=== PATIENT | female | born 1990 | race African-American/Black ===

== ENCOUNTER 2023-02-24 09:10 | Emergency (ER) | payer MEDICAID ==
[~2023-02-24] VITALS: Ht 175.3 cm; Wt 124.6 kg
[2023-02-24 11:24] VITALS: BP 165/117
[2023-02-24] MEDS ORDERED: AMLO5TAB4 PO (12:19)
== END 2023-02-24 12:30 | disposition home or self-care (01) ==
LOC: ER 09:11
DX: I10 Essential (primary) hypertension (principal); F17.200 Nicotine dependence, unspecified, uncomplicated; Z79.899 Other long term (current) drug therapy
CPT/HCPCS: 99283

== ENCOUNTER 2023-02-28 08:48 | Emergency (ER) | payer MEDICAID ==
[~2023-02-28] VITALS: Ht 175.3 cm; Wt 125.9 kg
[~2023-02-28 08:48] MED LIST: AMLO5TAB4 PO
[2023-02-28 08:55] VITALS: BP 176/109
[2023-02-28] MEDS ORDERED: HYDROcodone/acetaminophen 5mg/325mg tablet PO ONE (11:15)
[2023-02-28] MEDS ORDERED: NAPR-996 PO (11:20)
== END 2023-02-28 11:37 | disposition home or self-care (01) ==
LOC: ER 08:49
DX: M79.671 Pain in right foot (principal)
CPT/HCPCS: 73630; 99283

== ENCOUNTER 2023-12-10 11:39 | Emergency (ER) | payer MEDICAID ==
[~2023-12-10] VITALS: Ht 175.3 cm; Wt 104.5 kg
[~2023-12-10 11:39] MED LIST changes: +NAPR-996 PO
[2023-12-10 11:42] VITALS: BP 188/134; PULSE 102; RESP 20; TEMP 97; O2SAT 99
[2023-12-10] MEDS ORDERED: AMOX500C2 PO (12:06)
== END 2023-12-10 12:11 | disposition home or self-care (01) ==
LOC: ER 11:39
DX: H66.93 Otitis media, unspecified, bilateral (principal)
CPT/HCPCS: 99283

== ENCOUNTER 2024-01-23 14:50 | Outpatient (CLI) | payer MEDICAID | END 2024-01-23 23:59 | disposition home or self-care (01) | LOC: MRI 14:50 | PROVIDERS: ATTEND Nurse Practitioner Family | DX: I10 Essential (primary) hypertension (principal) | CPT/HCPCS: 70551 ==

== ENCOUNTER 2024-01-23 20:11 | Emergency (ER) | payer MEDICAID ==
[~2024-01-23] VITALS: Ht 175.3 cm; Wt 119.5 kg
[2024-01-23 20:24] VITALS: BP 115/78; PULSE 96; RESP 16; TEMP 97.2; O2SAT 97
[2024-01-23 22:34] LABS: ALBUMIN 3.8 G/DL (3.4-5.0); ANION GAP 11 (8-16); BLOOD UREA NITROGEN 19 MG/DL (7-18); BUN/CREATININE RATIO 10.1 (10.0-20.0); CALCIUM 9.2 MG/DL (8.5-10.1); CHLORIDE 99 MMOL/L (99-107); CREATININE 1.88 MG/DL (0.40-0.90); GLUCOSE 118 MG/DL (70-104); SODIUM 137 MMOL/L (135-145); eCRCL 45 ML/MIN; eGFR 38 ML/MIN
[2024-01-23 22:44] LABS: POTASSIUM 4.4 MMOL/L (3.5-5.1)
[2024-01-23] MEDS ORDERED: iohexol 350MG/ML 100ml bottle IV ONE (23:23)
[2024-01-23] MEDS ORDERED: albuterol 2.5 MG/3 ML nebule CONTNEB PRN (23:55)
[2024-01-23] MEDS ORDERED: LORazepam 2 mg/ml vial IV ONE (23:55)
[2024-01-24] MEDS: normal saline 1000ml 1,000 ML IV ONE (00:22)
== END 2024-01-24 01:18 | disposition home or self-care (01) ==
LOC: ER 20:12
DX: R93.0 Abnormal findings on diagnostic imaging of skull and head, not elsewhere classified (principal); N17.9 Acute kidney failure, unspecified; Z79.899 Other long term (current) drug therapy
CPT/HCPCS: 36415; 70496; 70498; 80048; 96360; 99285; J7030; Q9967

== ENCOUNTER 2024-04-15 10:31 | Outpatient (CLI) | payer MEDICAID | END 2024-04-15 23:59 | disposition home or self-care (01) | LOC: VAS 10:31 | PROVIDERS: ATTEND Nurse Practitioner Family | DX: I10 Essential (primary) hypertension (principal); R94.4 Abnormal results of kidney function studies | CPT/HCPCS: 93975 ==

== ENCOUNTER 2025-02-16 05:03 | Emergency (ER) | payer MEDICAID ==
[~2025-02-16] VITALS: Ht 175.3 cm; Wt 108.4 kg
[~2025-02-16 05:03] MED LIST changes: +NAPR-1168 PO; -NAPR-996 PO
--- NOTE | 2025-02-16 05:12 | Physician Documentation ---
History of Present Illness Chief Complaint: See Chief Complaint Stated Complaint: ABDOMINAL PAIN Time Seen by MD: 05:11 Primary Medical Doctor: STEFANIA BECK 34-year-old female presenting with 1 year of intermittent pelvic pain. She tells me that she was having pain in her pelvis, right worse than left. She tells me that she has been having these episodes over the last 1 year, and it usually seems related to her menstrual cycles. Her last menstrual cycle was about a month ago. She denies any fevers or infectious symptoms. No vaginal bleeding or discharge. No dysuria. No history of kidney stones. No history of ovarian cysts. She later tells me that one of her doctors said she might have PCOS EMS gave her 30 mg of Toradol during transfer, and she states that her pain is much better. Medication Reconciliation Allergies: Coded Allergies: No Known Allergies (Unverified , 02/16/25) Scheduled Amlodipine Besylate (Norvasc), 1 TAB PO DAILY Naproxen (Naproxen), 1 TAB PO Q12H Past Medical History Past Medical History: No Pertinent History Past Surgical History: noncontributory Alcohol Use: Other Review of Systems Genitourinary: Denies: discharge, dysuria, flank pain, hematuria Female Genitalia: Reports: pelvic pain; Denies: vaginal discharge, vaginal pain, abnormal bleeding, Physical Exam Vital Signs: Temperature: 98.4, Source: Oral, Heart Rate: 94, Respiratory Rate: 18, BP: 183/103, Pulse Oximetry: 99, Weight: 108.400 Oxygen Flow Rate: 0 Physical Exam General: This is a pleasant and overall well-appearing young female, daughter at bedside HEENT: Atraumatic, oropharynx is moist Heart: Mild tachycardic, appears regular Lungs: normal work of breathing, normal oxygen saturation on room air Abdomen: Soft, nondistended. The patient was mild discomfort on palpation in the right pelvic region only, otherwise no significant tenderness including in the upper abdomen or left side of the abdomen Extremities: Warm and well-perfused Neuro: Alert and oriented, no focal deficits Psychiatric: Calm and cooperative with exam Progress Results/Orders Results/Orders Vital Signs 02/16/25 05:05 Temp 98.4 Pulse 94 Resp 18 B/P (MAP) 183/103 Pulse Ox 99 O2 Flow Rate 0 EKG/XRAY/CT/US/VASC/MRI CT : Impression CT CT ABDOMEN PELVIS W/ IV CONTRAST INDICATION: RLQ pain- r/o appy : 34 old Female RLQ pain- r/o appy EXAM DATE: 02/16/2025 09:51 AM COMPARISON: None RADIATION DOSE: CTDIvol: 33 mGy, DLP: 1808 mGy*cm PROCEDURE: Helical CT images were obtained of the abdomen and pelvis with IV contrast Sagittal and coronal reconstructions are provided. ORAL CONTRAST: None. ADDITIONAL IMAGES / REFORMATS: None All CT scans at this medical facility are performed using dose modulation techniques as appropriate to a performed exam including the following: Automated exposure control was utilized; adjustment of the MA and/or KV according to patient size; and use of iterative reconstruction technique. FINDINGS: LUNG BASE: Left basilar atelectasis. LIVER: Attenuation. GALLBLADDER AND BILIARY TREE: Cholecystectomy clips are seen. No intra- or extrahepatic biliary ductal dilation. PANCREAS: Normal. SPLEEN: Normal. BOWEL: . Normal appendix. Mild colonic diverticulosis. ADRENALS: Normal. KIDNEYS AND URETER: Normal. BLADDER: Normal. REPRODUCTIVE ORGANS: Normal. LYMPH NODES:No lymphadenopathy. PERITONEUM: No ascites or free air. No other fluid collection. Trace pelvic fluid. VESSELS: Scattered atherosclerotic calcifications are noted. RETROPERITONEUM: Normal. ABDOMINAL WALL: Normal. BONES: Scattered osseous degenerative changes are noted. IMPRESSION: No acute intraabdominal abnormality. Normal appendix. Ultrasound : Impression US ULTRASOUND PELVIS W/ORWO DPLX HISTORY: Pelvic pain, right worse than left COMPARISON: None TECHNIQUE: Transabdominal images with color and spectral doppler were obtained of the pelvis and ovaries. FINDINGS: Uterus: - Measures 8.4 x 3.3 x 5.5 cm in length. - Echogenicity: Normal - Mass lesions: None - Endometrial stripe: 4.7 mm - Cervix: Normal. Right ovary: - Measures 3.5 x 1.7 x 2.4 cm - Vascularity: Normal flow on Doppler images. - Mass lesions: None Left ovary: - Measures 2.9 x 2.1 x 2.3 cm - Vascularity: Normal flow on Doppler images. - Mass lesions: None Adnexal masses: None Free fluid: None Other: None IMPRESSION: Unremarkable sonographic findings of the uterus and bilateral ovaries. Medical Decision Making Differential Dx:Considerations: Include: Appendicitis, Constipation, Ovarian cyst/torsion, Urinary tract infection, Urolithiasis Additional Comments DDX includes , ectopic Assessment Here in the ED, the patient presents with pelvic pain, with chronic intermittent episodes over the last 1 year. After Toradol from EMS, she is feeling significantly improved. Per her history and exam, his seems most likely that this would be a pelvic pathology, possibly related to her menstrual cycle, or ovaries. We will proceed with blood work, urinalysis, and a pelvic ultrasound. The patient was signed out at shift change to the oncoming ER provider, pending the above testing and to determine disposition. I took over care of this patient from prior ER physician. This is a 34-year-old female presenting with acute on chronic pelvic pain. Pelvic ultrasound was done and was unremarkable for any acute pathology. On my reassessment the patient stated that her pain had returned. This occurred mainly after she got up to use the restroom and came back. Patient was medicated again with 30 mg of IV Toradol. A CT of the abdomen and pelvis with contrast was done as well to rule out any other types of pathology such as appendicitis and this was normal as well. On reassessment the patient was markedly improved. I educated and advised the patient regarding her diagnosis and advised her that she needs to follow up closely with a part maker for further treatment and care. Return to the ED with any acutely worsening symptoms. I did prescribe the patient some medications for pain-ibuprofen 600 mg, 30 tablets as well as 10 tablets of 5-325 mg Lyles for breakthrough pain. I discussed the risks and benefits with the patient and advised on judicious use of the medications. CURES was checked and no signs of any suspicious activity was seen. Departure Disposition: HOME / SELF CARE / HOMELESS Impression: Primary Impression: Pelvic pain Condition: Improved Discharge Instructions: Pelvic Pain, Female Referrals: NO PRIMARY CARE PROVIDER (PCP) Prescriptions Hydrocodone Bit/Acetaminophen 5/325 MG (Lyles 5/325 MG) 5 Mg/325 Mg Tablet 1 TAB PO TID PRN PRN for pain for 5 Days, #10 TAB Prov: GALEN SILVERIO MD 02/16/25 Ibuprofen (Ibuprofen) 600 Mg Tablet 1 TAB PO Q8H for pain for 10 Days, #30 TAB 0 Refills with food Prov: GALEN SILVERIO MD 02/16/25 Education Educated: Patient, Family Educated regarding: diagnosis, treatment, need for follow up Signature Scribe Signature: na Attestation: na STEVEN KIRBY MD Feb 16, 2025 05:12 GALEN SILVERIO MD Feb 16, 2025 07:06
[2025-02-16 05:54] LABS: BASOPHILS # (AUTO) 0.1 X10'3 (0-0.2); EOSINOPHILS # (AUTO) 0.2 X10'3 (0-0.9); EOSINOPHILS % (AUTO) 1.9 % (0-6); HEMATOCRIT 36.1 % (35.0-45.0); HEMOGLOBIN 11.8 g/dl (12.0-16.0); LYMPHOCYTES # (AUTO) 1.8 X10'3 (1.1-4.8); MEAN CORPUSCULAR HEMOGLOBIN 30.3 PG (27.0-31.0); MEAN CORPUSCULAR HGB CONC 32.6 g/dL (33.0-36.5); MEAN CORPUSCULAR VOLUME 92.9 FL (78-98); MEAN PLATELET VOLUME 11.1 FL (7.4-10.4); MONOCYTES # (AUTO) 1.2 X10'3 (0-0.9); MONOCYTES % (AUTO) 8.8 % (2-12); NEUTROPHILS # (AUTO) 9.8 X10'3 (1.8-7.7); NEUTROPHILS % (AUTO) 74.3 % (42-75); PLATELET COUNT 302 X10'3 (140-440); RED BLOOD COUNT 3.89 X10'6 (4.20-5.60); RED CELL DISTRIBUTION WIDTH 18.6 % (11.5-14.5); WHITE BLOOD COUNT 13.1 X10'3 (4.5-11.0)
[2025-02-16 06:08] LABS: ALANINE AMINOTRANSFERASE 100 U/L (12-78); ALKALINE PHOSPHATASE 113 IU/L (46-116); ANION GAP 14 (8-16); ASPARTATE AMINO TRANSFERASE 134 U/L (10-37); BILIRUBIN,TOTAL 0.4 MG/DL (0.1-1.0); BLOOD UREA NITROGEN 11 MG/DL (7-18); BUN/CREATININE RATIO 13.1 (10.0-20.0); CALCIUM 9.2 MG/DL (8.5-10.1); CHLORIDE 104 MMOL/L (99-107); CREATININE 0.84 MG/DL (0.40-0.90); GLUCOSE 120 MG/DL (70-104); LIPASE 94 U/L (16-77); POTASSIUM 3.7 MMOL/L (3.5-5.1); SODIUM 139 MMOL/L (135-145); TOTAL CARBON DIOXIDE 20.7 MMOL/L (24-32); TOTAL PROTEIN 8.1 G/DL (6.4-8.2); eCRCL 100 ML/MIN; eGFR > 90 ML/MIN
--- NOTE | 2025-02-16 07:45 | RADIOLOGY REPORT ---
US ULTRASOUND PELVIS W/ORWO DPLX HISTORY: Pelvic pain, right worse than left COMPARISON: None TECHNIQUE: Transabdominal images with color and spectral doppler were obtained of the pelvis and ovar ies. FINDINGS: Uterus: - Measures 8.4 x 3.3 x 5.5 cm in length. - Echogenicity: Normal - Mass lesions: None - Endometrial stripe: 4.7 mm - Cervix: Normal. Right ovary: - Measures 3.5 x 1.7 x 2.4 cm - Vascularity: Normal flow on Doppler images. - Mass lesions: None Left ovary: - Measures 2.9 x 2.1 x 2.3 cm - Vascularity: Normal flow on Doppler images. - Mass lesions: None Adnexal masses: None Free fluid: None Other: None IMPRESSION: Unremarkable sonographic findings of the uterus and bilateral ovaries.
[2025-02-16 09:08] LABS: URINE HCG NEGATIVE (NEG)
[2025-02-16 09:09] LABS: BILIRUBIN,URINE NEGATIVE (Neg); CLARITY,URINE CLEAR (Clear); GLUCOSE, URINE NEGATIVE (Neg); KETONES,URINE TRACE mg/dl (Neg); LEUKOCYTE ESTERASE ,URINE NEGATIVE (Neg); NITRITES, URINE NEGATIVE (Neg); OCCULT BLOOD,URINE NEGATIVE (Neg); PROTEIN,URINE 100 mg/dl (Neg); UROBILINOGEN,URINE 0.2 E.U/dL (0.2-1.0)
[2025-02-16] MEDS: normal saline 500ml IV soln 500 ML IV ONE (09:15)
[2025-02-16] MEDS ORDERED: iohexol 300mg/ml 100ml inj. ONE (09:35)
[2025-02-16 09:36] LABS: COLOR,URINE DARK YELLOW (Yellow); UA COLLECTION TYPE CLN CATCH MIDSTREAM
[2025-02-16 09:43] LABS: BACTERIA,URINE 1+ /HPF (Neg); COARSE GRANULAR CAST 0-3 /LPF (NEGATIVE); RBC,URINE 0-2 /HPF (0-2); SQUAMOUS EPITHELIAL CELL,UR FEW /LPF (FEW); TRANSITIONAL EPI CELLS,URINE FEW /HPF; WBC,URINE 0-4 /HPF (0-4)
[2025-02-16] MEDS: ketorolac trometh 30MG/ML vial 30 MG/ML VIAL IV ONE (10:29)
--- NOTE | 2025-02-16 10:32 | RADIOLOGY REPORT ---
CT CT ABDOMEN PELVIS W/ IV CONTRAST INDICATION: RLQ pain- r/o appy : 34 old Female RLQ pain- r/o appy EXAM DATE: 02/16/2025 09:51 AM COMPARISON: None RADIATION DOSE: CTDIvol: 33 mGy, DLP: 1808 mGy*cm PROCEDURE: Helical CT images were obtained of the abdomen and pelvis with IV contrast Sagittal and co rahul reconstructions are provided. ORAL CONTRAST: None. ADDITIONAL IMAGES / REFORMATS: None All CT s cans at this medical facility are performed using dose modulation techniques as appropriate to a perf ormed exam including the following: Automated exposure control was utilized; adjustment of the MA and /or KV according to patient size; and use of iterative reconstruction technique. FINDINGS: LUNG BASE: Left basilar atelectasis. LIVER: Attenuation. GALLBLADDER AND BILIARY TREE: Cholecystectomy clips are seen. No intra- or extrahepatic biliary ducta l dilation. PANCREAS: Normal. SPLEEN: Normal. BOWEL: . Normal appendix. Mild colonic diverticulosis. ADRENALS: Normal. KIDNEYS AND URETER: Normal. BLADDER: Normal. REPRODUCTIVE ORGANS: Normal. LYMPH NODES:No lymphadenopathy. PERITONEUM: No ascites or free air. No other fluid collection. Trace pelvic fluid. VESSELS: Scattered atherosclerotic calcifications are noted. RETROPERITONEUM: Normal. ABDOMINAL WALL: Normal. BONES: Scattered osseous degenerative changes are noted. IMPRESSION: No acute intraabdominal abnormality. Normal appendix.
[2025-02-16] MEDS ORDERED: HYDR-3965 PO (10:57)
[2025-02-16] MEDS ORDERED: IBUP-1985 PO (10:57)
[2025-02-16 11:35] VITALS: BP 178/102; PULSE 78; RESP 16; TEMP 98.4; O2SAT 98
== END 2025-02-16 11:45 | disposition home or self-care (01) ==
LOC: ER 05:04
DX: R10.2 Pelvic and perineal pain (principal); Z79.899 Other long term (current) drug therapy
CPT/HCPCS: 36415; 74177; 76856; 80053; 81001; 81025; 83690; 85025; 93976; 96374; 99285; J1885; J7030; J7040; Q9967